=== PATIENT | male | born 1985 | race Caucasian/White ===

== ENCOUNTER 2017-05-10 22:37 | Emergency (ER) | payer SELFPAY ==
--- NOTE | 2017-05-11 01:31 | ER Document Report ---
ED Psych Disorder / Suicide - General Mode of Arrival: Medic <JERONIMO CHAMPAGNE - Last Filed: 05/11/17 01:25> <HAMILTON MENDEZ - Last Filed: 05/11/17 06:58> - General Information source: Patient - HPI Normal mood: Yes Associated symptoms: Normal affect, Normal mood <HARJIT MARTE - Last Filed: 05/11/17 11:43> <DEBORAH ROLAND - Last Filed: 05/11/17 12:04> - General Chief Complaint: Suicidal Ideation Stated Complaint: ETOH Time Seen by Provider: 05/11/17 00:22 Notes: Patient is a 31 year old male who presents to the ED via EMS. It is reported that patient wondered into someones house that he kind of knew and fell asleep. They called law enforcement who then called EMS. Patient at one point stated that he had been drinking all day and had smoked meth. Patient states this was his first time smoking meth. Patient also reported suicidal ideations at one time. Patient is sleeping while in the ED. (MAHIJREONIMO) - HPI Notes: Patient disclosed that he was drinking last night and went to a friend's house; "then I wound up here." Patient states he does not know why he is here. Patient continued to disclose that he has no mental health history no mental health or substance abuse treatment or provider. Patient denies suicidal ideation. Patient denies using any other substances other than drinking. Patient is alert and orientated to person place and time. Mood is euthymic with congruent affect; smiling and openly engaging with clinician. Patient denies suicidal and homicidal ideation. No delusions are noted. Patient denies auditory and visual hallucinations; patient is not demonstrating any behavior congruent with responding to internal stimuli. Thought process is currently organized and linear. Thought content appears to be slightly guarded in reference to substance abuse. Eye contact was well-maintained. Intellectual abilities appear to be within average range. Attention and concentration are good. Insight, judgment, impulse control appear to be affected by substance abuse. 291.9 (F10.99) Unspecified Alcohol Related Disorder Impression\\plan: Patient is considered psychiatrically clear for discharge. Patient does not meet IVC criteria per [place] GS 122C. Patient denies suicidal and homicidal ideation. Patient disclosed drinking alcohol and going to a friend's house. Reports indicate patient was intoxicated and went to a acquaintance home and passing out on the couch. Patient is recommended to receive substance abuse treatment. Dr. Maynard was consulted on the care and management of this patient; attending physician is in agreement with recommendations and disposition. (HARJIT MARTE) Past Medical History - General Information source: Patient - Social History Smoking Status: Unknown if Ever Smoked Family History: Reviewed & Not Pertinent <MAHIJERONIMO - Last Filed: 05/11/17 01:25> Review of Systems - Review of Systems -: Yes ROS unobtainable due to patient's medical condition <MAHIJERONIMO - Last Filed: 05/11/17 01:25> Physical Exam - General General appearance: Other - moderately responsive, responds to knockous stimulus by swatting it away - HEENT Head: Normocephalic, Atraumatic Eyes: Normal Pupils: Dilated Mucous membranes: Dry - Respiratory Respiratory status: No respiratory distress Chest status: Nontender Breath sounds: Normal Chest palpation: Normal - Cardiovascular Rhythm: Regular Heart sounds: Normal auscultation Murmur: No - Abdominal Inspection: Normal Distension: No distension Tenderness: Nontender - Back Back: Normal - Extremities General upper extremity: Normal inspection General lower extremity: Normal inspection - Psychological Associated symptoms: Other - moderately responsive, responds to knockous stimulus by swatting it away - Skin Skin Temperature: Warm Skin Moisture: Dry Skin Color: Normal <JERONIMO CHAMPAGNE - Last Filed: 05/11/17 01:25> Course - Laboratory Result Diagrams: 05/11/17 01:30 05/11/17 01:30 - EKG Interpretation by Ca EKG shows normal: Sinus rhythm, [place], Intervals. abnormal: QRS Complexes - Right ventricular hypertrophy, ST-T Waves - Early repolarization abnormality Rate: Normal - 82 Rhythm: NSR When compared to previous EKG there are: Previous EKG unavailable <HAMILTON MENDEZ - Last Filed: 05/11/17 06:58> - Laboratory Result Diagrams: 05/11/17 01:30 05/11/17 01:30 <HARJIT MARTE - Last Filed: 05/11/17 11:43> - Laboratory Result Diagrams: 05/11/17 01:30 05/11/17 01:30 <DEBORAH ROLAND - Last Filed: 05/11/17 12:04> - Vital Signs Vital signs: Temp Pulse Resp BP Pulse Ox 97.9 F 79 18 96/53 L 98 05/11/17 04:20 05/11/17 04:20 05/11/17 04:20 05/11/17 04:20 05/11/17 04:20 - Laboratory Laboratory results interpreted by me: 05/11/17 05/11/17 01:30 01:30 RBC 4.21 L RDW 14.2 H Sodium 146.2 H Chloride 110 H Glucose 116 H AST 14 L Salicylates < 1.0 L Acetaminophen < 10 L Discharge <JERONIMO CHAMPAGNE - Last Filed: 05/11/17 01:25> <HAMILTON MENDEZ - Last Filed: 05/11/17 06:58> <HARJIT MARTE - Last Filed: 05/11/17 11:43> <DEBORAH ROLAND - Last Filed: 05/11/17 12:04> - Discharge Clinical Impression: Suicidal ideation, Drug abuse Alcohol intoxication Qualifiers: Complication of substance-induced condition: uncomplicated Qualified Code(s): F10.920 - Alcohol use, unspecified with intoxication, uncomplicated Condition: Stable Disposition: HOME, SELF-CARE Additional Instructions: ACUTE ALCOHOL INTOXICATION and ALCOHOL ABUSE: Your evaluation revealed very high levels of alcohol. You can from drinking a large amount of alcohol rapidly! Further, there's the risk of falls , traffic accidents, and fights. A high portion (about 50 percent) of the serious injuries seen in hospital emergency rooms are caused by alcohol. Alcohol overdosage is usually due to an underlying emotional or psychiatric problem. You may benefit from counselling. If "binge" drinking is an ongoing problem for you, or if you drink ANY AMOUNT of alcohol EVERY day, you most likely have a tendency to alcoholism. You should avoid alcohol totally. We can refer you for treatment. Persons with alcohol problems are often also prone to other addictions -- you should discuss any use of medications or drugs with the doctor. You should be watched at home for the next several hours by someone who has not been drinking. Get extra fluids for the next 24 hours. Call the doctor if there is repeated vomiting, increasing headache, decreasing level of alertness, or any other worsening. CHRONIC ALCOHOLISM and ALCOHOL ABUSE: Your evaluation reveals evidence of chronic alcoholism, an addiction to alcohol. The tendency to alcoholism may be inherited. Chronic use of alcohol weakens muscles, causes fatty deposits in the liver , damages the stomach, makes you more prone to infections, and can cause defects in unborn children. In the long run, brain atrophy and cirrhosis of the liver result. You are also at greater risk for certain types of cancer, such as cancer of the mouth, throat, stomach, and liver. Counselling services are available to help you. In-hospital treatment programs often help. Support groups such as Alcoholics Anonymous can be very useful in beating this addiction. Your physician can make a referral for you. As alcoholics often are prone to other addictions, you should discuss your use of any other medications with the doctor. ALCOHOL WITHDRAWAL: Your symptoms are caused by alcohol withdrawal. After a period of frequent drinking, the brain and body are changed by the alcohol. When you quit or reduce your drinking, the nervous system becomes unstable. Withdrawal symptoms can start a few hours after your last drink, but sometimes don't begin until a couple of days later. Symptoms can include shakiness, sweating, insomnia, nausea , vomiting, fearfulness, hallucinations, and seizures. In addition to the acute effects of alcohol withdrawal, we often have to deal with the medical effects of alcoholism. These problems often include dehydration, stomach irritation, intestinal bleeding, low blood sugar, liver disease, and pancreas inflammation. Treatment for alcohol withdrawal includes mild sedatives, vitamins, and fluids. You need to be with someone who can help if symptoms become severe. Many patients can withdraw at home. Admission to the hospital or a detox facility may be necessary if withdrawal symptoms are severe and uncontrollable. Abstaining from alcohol is the only effective long-term treatment. If you start drinking again, you will not be able to control yourself after the first drink. Treatment programs are available. In addition, many alcoholics benefit from Alcoholics Anonymous or other support groups available through your counselor or [employer]odox [employer] pusher. [facility] and [facility] are support groups for friends and family members of an alcoholic. Go to the emergency room if you develop persistent vomiting, severe abdominal pain, fever, shortness of breath, hallucinations, uncontrollable tremors, or seizures. AMPHETAMINE / METHAMPHETAMINE ABUSE: Amphetamines are addicting stimulants. Amphetamines overstimulate the nervous system and give a false feeling of power and mastery. These drugs may be obtained as prescription pills for weight loss, narcolepsy, or attention- deficit disorder. More often they're bought as an illegal street drug, methamphetamine (crank, crystal, speed). Using amphetamines repeatedly can lead to serious medical problems including malnutrition, severe depression, and paranoia. It can take increasing amounts to feel good. Eventually, there will be a "burn out." When you go off amphetamines there is a period of depression that may last for weeks or even months. High doses of amphetamines can cause seizures, confusion, hallucinations, delusions, high blood pressure, muscle damage, heart damage, or sudden . Many times these deadly complications occur even with "normal" doses. Injection of amphetamines is risky for developing abscesses, endocarditis ( heart infection), pneumonia, and AIDS. Withdrawal from amphetamines often causes anxiety, depression, and drug cravings. Some users become paranoid and psychotic. There may be cramps, nausea , and vomiting. Many treatment programs are available, but you must make the decision to quit. Medication can be prescribed to control the symptoms of amphetamine toxicity (beta blockers or benzodiazepines). Withdrawal symptoms may require tranquilizers. FOLLOW-UP CARE: Please follow up with substance abuse treatment service through [facility]. You have also been provided resources for additional services for inpatient substance abuse treatment if you choose to. If you experience worsening or a significant change in your symptoms, notify the physician immediately or return to the Emergency Department at any time for re-evaluation. Referrals: [facility] [Outside] - Follow up in 3-5 days Scribe Attestation: 05/11/17 06:58 I personally performed the services described in the documentation, reviewed and edited the documentation which was dictated to the scribe in my presence, and it accurately records my words and actions. (HAMILTON MENDEZ) Scribe Documentation - Scribe Written by Katlin:: katlin Mcfarlane, 05/11/2017, [id number] acting as scribe for :: Michelle <JERONIMO CHAMPAGNE - Last Filed: 05/11/17 01:25>
[2017-05-11 01:43] LABS: ABSOLUTE BASOPHILS # (AUTO) 0.1 10^3/uL (0.0-0.2); ABSOLUTE EOSINOPHILS # (AUTO) 0.2 10^3/uL (0.0-0.6); ABSOLUTE LYMPHOCYTES (AUTO) 2.9 10^3/uL (0.5-4.7); ABSOLUTE MONOCYTES (AUTO) 0.4 10^3/uL (0.1-1.4); ABSOLUTE NEUT (AUTO) 4.2 10^3/uL (1.7-8.2); BASOPHILS % (AUTO) 0.7 % (0-2); EOSINOPHILS % (AUTO) 2.7 % (0-6); HEMATOCRIT 39.5 % (37.9-51.0); HEMOGLOBIN 13.8 g/dL (13.5-17.0); HGB HCT DIFFERENCE 1.9; LYMPHOCYTES % (AUTO) 37.4 % (13-45); MEAN CORPUSCULAR HEMOGLOBIN 32.8 pg (27.0-33.4); MEAN CORPUSCULAR VOLUME 94 fl (80-97); MONOCYTES % (AUTO) 4.8 % (3-13); RED BLOOD COUNT 4.21 10^6/uL (4.35-5.55); RED CELL DISTRIBUTION WIDTH 14.2 % (11.5-14.0); SEGMENTED NEUTROPHILS % (AUTO) 54.4 % (42-78); WHITE BLOOD COUNT 7.8 10^3/uL (4.0-10.5)
[2017-05-11 01:58] LABS: ALANINE AMINOTRANSFERASE 29 U/L (21-72); ALBUMIN 3.8 g/dL (3.5-5.0); ALCOHOL 186 mg/dL (NONE DETECTED); ALKALINE PHOSPHATASE 54 U/L (38-126); ANION GAP 11 (5-19); ASPARTATE AMINO TRANSFERASE 14 U/L (17-59); BILIRUBIN,DIRECT 0.4 mg/dL (0.0-0.4); BILIRUBIN,TOTAL 0.4 mg/dL (0.2-1.3); BLOOD UREA NITROGEN 8 mg/dL (7-20); CALCIUM 8.8 mg/dL (8.4-10.2); CARBON DIOXIDE 25 mmol/L (22-30); CHLORIDE 110 mmol/L (98-107); CREATININE RESULT 0.72 mg/dL (0.52-1.25); GLUCOSE 116 mg/dL (75-110); POTASSIUM 3.9 mmol/L (3.6-5.0); SODIUM 146.2 mmol/L (137-145); TOTAL PROTEIN 6.9 g/dL (6.3-8.2)
[2017-05-11] MEDS ORDERED: NORMAL SALINE 1000 ML 1,000 ML IV ONE (02:01)
[2017-05-11] MEDS ORDERED: RINGERS SOLUTION,LACTATED 1,000 ML IV ONE (04:50)
--- NOTE | 2017-05-11 12:21 | ER Document Report ---
Doctor's Note Notes: 05/11/17 12:19 Medical rounds: Chart reviewed and patient interviewed briefly. Vital signs have been stable throughout patient's stay in the emergency department. Laboratory values, except for a high ethanol level, are satisfactory. Patient is alert, oriented, and coherent. He verbalizes no somatic complaints. He has been cleared by the psychosocial team for discharge to home with outpatient follow-up for substance abuse.
[2017-05-11 12:40] VITALS: BP 116/83
--- NOTE | 2017-05-12 13:05 | EKG REPORT ---
SEVERITY:- ABNORMAL ECG - SINUS RHYTHM PROBABLE RIGHT VENTRICULAR HYPERTROPHY ST ELEV, PROBABLE NORMAL EARLY REPOL PATTERN : Confirmed by: Pratima Rush MD 12-May-2017 13:04:26
== END 2017-05-11 12:41 | disposition home or self-care (01) ==
LOC: ER 22:37
DX: R45.851 Suicidal ideations (principal); F10.920 Alcohol use, unspecified with intoxication, uncomplicated; F19.10 Other psychoactive substance abuse, uncomplicated
CPT/HCPCS: 93005; 99284; 96361; 96365; 36415; 80307 ×3; 85025; 80053; 93010; J7030; J7120